=== PATIENT | female | born 1945 | race Caucasian/White ===

== ENCOUNTER 2019-02-01 13:20 | Emergency (ER) | payer MEDICARE ==
[~2019-02-01] VITALS: Ht 154.9 cm; Wt 58.6 kg
[~2019-02-01 13:20] MED LIST: ALPR-13 PO; ASPI-611 PO; ESTR1TAB28 PO; OMEP1CAP24 PO; [UNRECOGNIZED DRUG - CODE] PO; [UNRECOGNIZED DRUG - CODE] PO
[2019-02-01 13:27] VITALS: BP 135/79
--- NOTE | 2019-02-01 14:22 | NUR ---
AMBULATORY TO ER #[id number] WITH C/O LEFT GROIN AND BUTTOCK PAIN. STATES SHE FELL ON 01/23/2019 AND HAS HAD PERSISTING PAIN WITH DIFFICULTY WALKING.
[2019-02-01] MEDS ORDERED: ketorolac tromethamine 15mg/ml inj. IM ONE (14:40)
[2019-02-01] MEDS ORDERED: orphenadrine citrate 60mg/2ml inj. IM ONE (14:40)
== END 2019-02-01 15:39 | disposition home or self-care (01) ==
LOC: ER 13:20
DX: M25.552 Pain in left hip (principal); E78.00 Pure hypercholesterolemia, unspecified; Z88.5 Allergy status to narcotic agent; Z88.1 Allergy status to other antibiotic agents; Z79.82 Long term (current) use of aspirin; Z79.899 Other long term (current) drug therapy
CPT/HCPCS: 73502; 96372; 99284; J1885; J2360

== ENCOUNTER 2019-02-14 13:49 | Outpatient (CLI) | payer MEDICARE ==
[2019-02-14 14:04] VITALS: BP 142/91
== END 2019-02-14 14:58 | disposition home or self-care (01) ==
LOC: ORTHO 13:49
PROVIDERS: ATTEND Nurse Practitioner Family
DX: M25.552 Pain in left hip (principal); E78.00 Pure hypercholesterolemia, unspecified; I10 Essential (primary) hypertension; Z72.89 Other problems related to lifestyle; Z79.82 Long term (current) use of aspirin; W19.XXXA Unspecified fall, initial encounter; Y93.89 Activity, other specified; Y92.89 Other specified places as the place of occurrence of the external cause; Y99.8 Other external cause status
CPT/HCPCS: 99213